=== PATIENT | female | born 1980 | race Caucasian/White ===

== ENCOUNTER 2016-09-17 09:00 | Outpatient (CLI) | payer OTHER ==
[2016-09-17 09:37] LABS: BASOPHILS % 0.4 (0.0-1.5); EOSINOPHILS % 0.7 % (0.0-6.8); MEAN CORPUSCULAR HEMOGLOBIN 31.4 pg (28.0-34.0); MEAN CORPUSCULAR VOLUME 95.7 fl (80.0-100.0); MONOCYTES % 3.7 % (0.0-11.0); NEUTROPHILS # 4.1 # k/uL (1.4-7.7)
[2016-09-17 10:06] LABS: eGFR (African) > 60; eGFR (Non-African) > 60
== END 2016-09-17 09:02 ==
LOC: LAB 09:00
PROVIDERS: ATTEND Nurse Practitioner Psychiatric/Mental Health
DX: Z51.81 Encounter for therapeutic drug level monitoring (principal); Z79.01 Long term (current) use of anticoagulants
CPT/HCPCS: 36415; 80053; 80178; 82306; 84439; 84443; 85025

== ENCOUNTER 2016-10-08 09:09 | Outpatient (CLI) | payer OTHER | END 2016-10-08 09:10 | LOC: LAB 09:09 | PROVIDERS: ATTEND Nurse Practitioner Psychiatric/Mental Health | DX: Z51.81 Encounter for therapeutic drug level monitoring (principal); Z79.899 Other long term (current) drug therapy | CPT/HCPCS: 36415; 80178 ==

== ENCOUNTER 2016-11-25 07:16 | Outpatient (CLI) | payer OTHER | END 2016-11-25 09:02 | LOC: LAB 07:16 | PROVIDERS: ATTEND Nurse Practitioner Psychiatric/Mental Health | DX: Z79.899 Other long term (current) drug therapy (principal) | CPT/HCPCS: 36415; 80061 ==

== ENCOUNTER 2017-04-17 08:40 | Outpatient (CLI) | payer OTHER ==
[2017-04-17 09:03] LABS: BASOPHILS % 0.4 (0.0-1.5); EOSINOPHILS % 1.3 % (0.0-6.8); MEAN CORPUSCULAR HEMOGLOBIN 30.1 pg (28.0-34.0); MONOCYTES % 2.4 % (0.0-11.0)
== END 2017-04-17 08:42 ==
LOC: LAB 08:40
PROVIDERS: ATTEND Nurse Practitioner Psychiatric/Mental Health
DX: Z51.81 Encounter for therapeutic drug level monitoring (principal); Z79.899 Other long term (current) drug therapy
CPT/HCPCS: 36415; 80178; 85025

== ENCOUNTER 2017-07-24 07:02 | Outpatient (CLI) | payer OTHER | END 2017-07-24 07:03 | LOC: LAB 07:02 | PROVIDERS: ATTEND Nurse Practitioner Psychiatric/Mental Health | DX: Z79.899 Other long term (current) drug therapy (principal) | CPT/HCPCS: 36415; 80178; 84443 ==

== ENCOUNTER 2017-09-22 08:24 | Outpatient (CLI) | payer OTHER | END 2017-09-22 08:25 | LOC: LAB 08:24 | PROVIDERS: ATTEND Psychiatry & Neurology Psychiatry | DX: Z79.899 Other long term (current) drug therapy (principal) | CPT/HCPCS: 36415; 82306; 84439 ==

== ENCOUNTER 2018-01-29 08:10 | Outpatient (CLI) | payer OTHER ==
[2018-01-29 09:36] LABS: eGFR (African) > 60; eGFR (Non-African) > 60
[2018-01-29 10:57] LABS: BASOPHILS % 0.6 (0.0-1.5); EOSINOPHILS % 0.5 % (0.0-6.8); MEAN CORPUSCULAR HEMOGLOBIN 30.4 pg (28.0-34.0); MEAN CORPUSCULAR VOLUME 94.6 fl (80.0-100.0); MONOCYTES % 3.7 % (0.0-11.0); NEUTROPHILS # 4.2 # k/uL (1.4-7.7)
== END 2018-01-29 11:49 ==
LOC: LAB 08:10
PROVIDERS: ATTEND Nurse Practitioner Family
DX: Z51.81 Encounter for therapeutic drug level monitoring (principal)
CPT/HCPCS: 36415; 80053; 80178; 85025

== ENCOUNTER 2018-03-20 07:52 | Outpatient (CLI) | payer OTHER | END 2018-03-20 07:53 | LOC: LAB 07:52 | PROVIDERS: ATTEND Nurse Practitioner Family | DX: Z79.899 Other long term (current) drug therapy (principal) | CPT/HCPCS: 36415; 80061 ==